=== PATIENT | male | born 1935 | race Caucasian/White ===

== ENCOUNTER → 2017-05-14 | Outpatient (CLI) | payer MEDICARE, OTHER ==
[~2017-05-14] MED LIST: TYLENOL EXTRA500 MG PO; ZESTORETIC 10-1 EAC1 PO
== END | disposition home or self-care (01) ==
LOC: CDC 13:57
DX: Z01.810 Encounter for preprocedural cardiovascular examination (principal); C77.9 Secondary and unspecified malignant neoplasm of lymph node, unspecified; I49.3 Ventricular premature depolarization; R94.31 Abnormal electrocardiogram [ECG] [EKG]
CPT/HCPCS: 93000

== ENCOUNTER 2017-05-19 09:49 | Day surgery (SDC) | payer OTHER ==
[~2017-05-19] VITALS: Ht 170.2 cm; Wt 74.0 kg
[2017-05-19 10:50] VITALS: BP 142/88
[2017-05-19 16:05] VITALS: BP 164/74
[2017-05-19 16:49] VITALS: BP 162/75
[2017-06-02] MEDS ORDERED: ONDANSETRON HCL8 MG PO (10:18)
[2017-06-02] MEDS ORDERED: COMPAZINE10 MG PO (10:18)
[2017-06-02] MEDS ORDERED: ST. JOSEPH ASPI81 MG PO (10:20)
[2017-06-02] MEDS ORDERED: ALPHAGAN P100 DROP/5 LEFT EYE (10:21)
[2017-06-02] MEDS ORDERED: PRILOSEC20 MG PO (10:21)
[2017-06-02] MEDS ORDERED: LATANOPROST2.5 ML BOTH EYES (10:21)
== END 2017-05-19 16:55 | disposition home or self-care (01) ==
LOC: SDC 09:49
PROC: 0DH63UZ Insertion of Feeding Device into Stomach, Percutaneous Approach (ICD-10-PCS; principal; 2017-05-19)
DX: C77.0 Secondary and unspecified malignant neoplasm of lymph nodes of head, face and neck (principal); R13.10 Dysphagia, unspecified; I10 Essential (primary) hypertension; Z87.891 Personal history of nicotine dependence; M19.90 Unspecified osteoarthritis, unspecified site; E78.5 Hyperlipidemia, unspecified; I87.8 Other specified disorders of veins; Z95.0 Presence of cardiac pacemaker
CPT/HCPCS: S0074

== ENCOUNTER 2017-11-17 08:12 | Inpatient (IN) | payer OTHER ==
[~2017-11-17] VITALS: Ht 168.9 cm; Wt 65.0 kg
[~2017-11-17 08:12] MED LIST changes: +ALPHAGAN P100 DROP/5 LEFT EYE; +COMPAZINE10 MG PO; +LATANOPROST2.5 ML BOTH EYES; +NAPROSYN250 MG PO; +ONDANSETRON HCL8 MG PO; +PRILOSEC20 MG PO; +ST. JOSEPH ASPI81 MG PO
[2017-11-17 19:38] VITALS: BP 110/59
[2017-11-17 23:24] VITALS: BP 92/56
[2017-11-18 03:31] VITALS: BP 108/61
[2017-11-18 06:38] LABS: HEMOGLOBIN 13.1 G/DL (12.5-16.6); MCH 32.2 PG (29.0-34.0); MCHC 32.8 G/DL (30.0-36.0); MCV 98.3 FL (86-99); PLATELET COUNT 162 K/uL (156-360); RBC DIS.WIDTH-CV 12.1 % (11.8-14.6); RBC DIS.WIDTH-SD 43.9 % (39-53); RED BLOOD COUNT 4.07 M/uL (4.00-5.50); WHITE BLOOD COUNT 3.5 K/uL (4.1-10.2)
[2017-11-18 06:58] LABS: CHLORIDE 105 MEQ/L (99-109); CREATININE 1.2 MG/DL (0.6-1.3); GFR ESTIMATE (CALCULATED) > 59 mL/min/ (58.99-99999); GLUCOSE 90 mg/dL (70-99); POTASSIUM 4.8 MEQ/L (3.7-5.4); SODIUM 140 MEQ/L (136-147); UREA NITROGEN (BUN) 25 mg/dL (9-23)
[2017-11-18 08:15] VITALS: BP 131/65
[2017-11-18 11:36] VITALS: BP 119/65
[2017-11-18] MEDS ORDERED: ACETAMINOPHEN-1 EAC1 PO (14:56)
[2017-11-18 15:51] VITALS: BP 124/70
== END 2017-11-18 16:26 | disposition home or self-care (01) | DRG 201 ==
LOC: OPR 08:12 → EDSTATUS 09:00 → OPR 09:00 → 2SOUTH 16:20 → ENRESERV 16:21 → 3EAST 17:39
PROVIDERS: Internal Medicine
DX: J95.811 Postprocedural pneumothorax (principal); Y84.8 Other medical procedures as the cause of abnormal reaction of the patient, or of later complication, without mention of misadventure at the time of the procedure; R91.8 Other nonspecific abnormal finding of lung field; R13.10 Dysphagia, unspecified; I10 Essential (primary) hypertension; K21.9 Gastro-esophageal reflux disease without esophagitis; H40.9 Unspecified glaucoma; M19.90 Unspecified osteoarthritis, unspecified site; Z66 Do not resuscitate; Z85.89 Personal history of malignant neoplasm of other organs and systems; Z92.21 Personal history of antineoplastic chemotherapy; Z92.3 Personal history of irradiation; Z95.0 Presence of cardiac pacemaker; Z87.891 Personal history of nicotine dependence; Z79.82 Long term (current) use of aspirin; Z91.041 Radiographic dye allergy status
CPT/HCPCS: 32557; 71045; 71046; 77012; 80048; 85027; 88305; C1729; J1650; J3010